=== PATIENT | female | born 1970 | race Caucasian/White ===

== ENCOUNTER → 2018-06-11 | Outpatient (CLI) | payer BC ==
--- NOTE | 2018-06-11 13:48 | MRI ---
EXAM DESCRIPTION: Knee,Right CLINICAL HISTORY: 47 years Female, KNEE PAIN COMPARISON: None. TECHNIQUE: Noncontrast multiplanar multisequence magnetic resonance imaging of the right knee was performed using standard protocol. FINDINGS: Complete loss of the chondral surface is seen involving the lateral patellar facet with associated subchondral sclerosis and cystlike change indicating advanced chondrosis/early osteoarthritis. Similar advanced chondrosis/early osteoarthritis is seen along the lateral trochlear groove. Grade 3-4 chondrosis is seen within the medial patellar facet and corresponding trochlear groove. Large knee joint effusion is present exhibiting a mild degree of synovitis. Large 7 cm leaking Traore's cyst is noted. Heterotopic loose body seen within the Traore cyst measuring up to 1.3 cm. Mild generalized chondral thinning is seen throughout the medial and lateral compartments. No high-grade chondrosis of the medial lateral compartment is demonstrated. Circumferential free edge degeneration of the medial meniscus is present without high-grade tearing. Lateral meniscus exhibits normal morphology and signal intensity. Cruciate ligaments are intact. Quadriceps and patellar tendons are maintained. Collateral ligaments are intact. Usual mucoid degenerative change is seen within the proximal attachment of the lateral head of the gastrocnemius. 0.6 cm loose body seen in the recess underlying the proximal attachment of the medial head gastrocnemius. IMPRESSION: Advanced patellofemoral chondrosis/osteoarthritis. Large knee joint effusion with synovitis. Popliteal fossa cyst with heterotopic loose bodies. Intact cruciate and collateral ligaments. Mild free edge degeneration of the medial meniscus without discrete high-grade tear. Mild generalized thinning of the medial and lateral compartment articular surfaces. Additional findings described above. Electronically signed by: Cain Zuleta MD 06/11/2018 1:46 PM CDT
== END ==
LOC: MRI 10:53
PROVIDERS: ATTEND Family Medicine
DX: M17.11 Unilateral primary osteoarthritis, right knee (principal); M71.21 Synovial cyst of popliteal space [Baker], right knee